=== PATIENT | female | born 1955 | race Caucasian/White ===

== ENCOUNTER → 2016-12-24 | Day surgery (SDC) | payer BC ==
[~2016-12-24] MED LIST: BUPIVACAINE HCL PF 0.25% 30 ML VIAL ONE; FURO40TA PO; LACT20SO4 PO; LACTATED RINGER'S 1000 ML INJ 1,000 ML ONE; LEVO50TA4 PO; MIDAZOLAM HCL 2 MG/2 ML VIAL ONE; PROPOFOL 200 MG/20 ML AMP IV ONE; RIFA550 PO; SERT-132 PO; SPIR100 PO; TRIAMCINOLONE ACETONIDE 40 MG/ML VIAL ONE; ULTR50TA PO; VITA100T15 PO; ZOFR4TAB3 SL; ceFAZolin 2 GM PREMIX 50 ML ONE
--- NOTE | 2016-12-28 09:54 | MP ---
cc: NHI KIMBLE DPM DATE OF SURGERY 12/24/2016 PREOPERATIVE DIAGNOSIS Left third interspace neuroma. POSTOPERATIVE DIAGNOSIS Left third interspace neuroma. PROCEDURE Left third interspace mass excision/neurectomy. SPECIMEN Soft tissue, presumed neuroma. ESTIMATED BLOOD LOSS Less than 30 mL. COMPLICATIONS None. ANESTHESIA TIVA with local, approximately 18 cc with 0.25% Marcaine plain. TOURNIQUET TIME 29 minutes at the setting of 250 mmHg. PLAN OF ACTIVITY PACU, then D/C home once stable per Same-Day Surgery criteria PROCEDURE IN DETAIL Under mild sedation, the patient was brought into the operating room, placed on the operative table in the supine position. Following the induction of TIVA general anesthesia, local anesthesia was obtained about the forefoot utilizing standard block fashion. The left foot was then scrubbed, prepped and draped in the usual aseptic fashion. The foot was elevated, exsanguinated and the previously placed mid-ankle tourniquet was inflated to 200 mmHg. The incision was made over the base of the fourth digit which was slight curvilinear at the dorsal aspect of the third interspace. Sharp and blunt dissection was carried down through the deep fascia, being careful not to violate the neurovascular structures dorsally. Sharp and blunt dissection was carried down to the level of the transverse intermetatarsal ligament which was severed and there was noted to be inflammatory and neuroma-type findings. The stalk of the neuroma was identified as far distal as possible, injected with Kenalog 40 at 0.5 cc and then severed allowing for retraction within the deep interossei of the plantar musculature of the foot. The distal bifurcation to the third and fourth digit was identified and severed. The neuroma was passed off the surgical field for pathological analysis. The wound was flushed with copious amounts of normal saline. The superficial fascial layer took place utilizing Vicryl. The skin was closed utilizing nylon. Upon relieving the tourniquet there is a prompt hyperemic response to all digits without any delayed capillary fill time. A bulky bandage was placed and the patient transferred from OR to PACU with all vital signs stable. She is to weight bear to tolerance; however, limited walking, ice and elevate. I will see the patient within 3-5 days. JOBY Abarca /4:44 PM /8:47 AM
== END | disposition home or self-care (01) ==
LOC: ESDC 13:31
PROVIDERS: ATTEND Podiatrist Foot & Ankle Surgery
DX: G57.62 Lesion of plantar nerve, left lower limb (principal)
CPT/HCPCS: 01470; 28080; 88304; J0690; J2250; J3010; J3301; J7120

== ENCOUNTER → 2017-02-11 | Day surgery (SDC) | payer BC ==
[~2017-02-11] MED LIST changes: +KETOROLAC TROMETHAMINE 30 MG/ML (IVP) VIAL IV PUSH ONE; +ONDANSETRON HCL 4 MG/2 ML VIAL IV PUSH ONE; -PROPOFOL 200 MG/20 ML AMP IV ONE; +PROPOFOL 500 MG/50 ML BTL IV ONE
--- NOTE | 2017-02-13 23:11 | MP ---
cc: NHI KIMBLE DPM DATE OF SURGERY 02/11/17 PREOPERATIVE DIAGNOSIS Painful right neuroma third interspace. POSTOPERATIVE DIAGNOSIS Painful right neuroma third interspace. PROCEDURES PERFORMED Excision neuroma in deep third interspace. SPECIMEN Soft tissue, presumed neuroma. ESTIMATED BLOOD LOSS Less than 30 mL COMPLICATIONS None ANESTHESIA Total IV anesthesia general with local, 20 mL of 0.25% Marcaine plain INJECTABLES As previously stated as well as 0.5 mL of Kenalog 40. TOURNIQUET TIME 25 minutes at a setting of 215 mmHg about the patient's right mid ankle. PLAN OF ACTIVITY Post anesthesia care unit then DC home once stable per same-day surgery criteria. JUSTIFICATION FOR PROCEDURE This is a pleasant 61-year-old female with worsening right forefoot pain. She has a history of a neuroma on the left. The neuroma was excised. She has minimal to no pain. She wishes for the same procedure to be performed. PROCEDURE IN DETAIL Under mild sedation, the patient was brought into the operating room, placed on the operating table in the supine position. Following the induction of total IV anesthesia, local anesthesia was obtained about the right forefoot utilizing standard block fashion. The right foot was then scrubbed, prepped, draped in the usual aseptic fashion. The foot elevated, exsanguinated and the previously placed mid ankle tourniquet was inflated to 215 mmHg. Incision was made over the dorsal aspect of the third interspace. Sharp and blunt dissection was carried down through venous structures and adipose being careful not to violate any vital tendon or arterial vascular structure. Sharp and blunt dissection was carried down to the level of the third, fourth intermetatarsal ligament. This was severed. There was noted to be a hypertrophic nerve and obvious signs of a clinical neuroma. The stalk of the neuroma was identified back into the level of the interossei. It was pulled as far distal as possible and severed. However, right before cutting the nerve sharply 0.5 mL of Kenalog 40 was infiltrated into the neuroma stump allowing for retraction at the level of the interossei. The bifurcation into the plantar third and fourth digit was identified and this was also severed being careful not to violate the venous or arterial structure. The nerve was then passed off the field for pathological analysis. Interspace was further explored. There was noted to be no obvious other mass type lesion. The tendon and joint capsule appeared to be intact. The wound was flushed with copious amounts of normal saline. Deep dermis was closed utilizing Monocryl. Skin was closed utilizing nylon. A bulky bandage placed. Upon relieving the tourniquet, there was a prompt hyperemic response to all digits without any delayed capillary fill time. The patient transferred from OR to PACU with all vital signs stable. She is heel weight bear to tolerance. She will ice, elevate. I will see the patient within 3-5 days. JOBY Abarca/ /1:52 PM /10:56 PM
== END | disposition home or self-care (01) ==
LOC: ESDC 11:14
PROVIDERS: ATTEND Podiatrist Foot & Ankle Surgery
DX: G57.61 Lesion of plantar nerve, right lower limb (principal)
CPT/HCPCS: 01470; 28080; 88304; J0690; J1885; J2250; J2405; J3010; J3301; J7120